=== PATIENT | female | born 1935 | race Caucasian/White ===

== ENCOUNTER 2023-11-06 20:20 | Emergency (ER) | payer OTHER ==
[2023-11-06 21:14] VITALS: BP 141/62; PULSE 64; RESP 20; TEMP 98.8; BMI 28.3
[2023-11-06] MEDS ORDERED: ACETAMINOPHEN 325 MG TABLET (FP) ONE (21:44)
[2023-11-06] MEDS: ACETAMINOPHEN 500 MG TABLET (FP) PO ONE (21:49)
== END 2023-11-06 23:35 | disposition home or self-care (01) ==
LOC: JER 20:20
DX: S92.911A Unspecified fracture of right toe(s), initial encounter for closed fracture (principal); M79.674 Pain in right toe(s); W22.03XA Walked into furniture, initial encounter
CPT/HCPCS: 73630-TC-RT-FY; 73660-TC-FY; 99283-25